=== PATIENT | female | born 1975 | race Caucasian/White ===

== ENCOUNTER 2022-05-21 01:15 | Emergency (ER) | payer SELFPAY ==
[2022-05-21 03:10] LABS: HEMOGLOBIN 13.5 gm/dl (12.3-15.3); RED BLOOD COUNT 4.81 M/UL (4.00-5.10); WHITE BLOOD COUNT 12.6 K/UL (4.5-11.0)
[2022-05-21 03:53] LABS: BUN/CREATININE RATIO 17 (0-10)
[2022-05-21] MEDS ORDERED: ZOFRAN ODT 4 MG4 MG PO (05:09)
[2022-05-21] MEDS ORDERED: CEFPODOXIME PR200 MG PO (05:09)
[2022-05-21] MEDS ORDERED: IBUPROFEN600 MG PO (05:09)
== END 2022-05-21 05:23 | disposition home or self-care (01) ==
LOC: ER1 01:15
DX: N39.0 Urinary tract infection, site not specified (principal); I10 Essential (primary) hypertension; F17.210 Nicotine dependence, cigarettes, uncomplicated; Z88.8 Allergy status to other drugs, medicaments and biological substances
CPT/HCPCS: 80053; 81001; 83690; 85025; 96372; 99284; J0696; J1885